=== PATIENT | female | born 1990 | race African-American/Black ===

== ENCOUNTER 2017-05-16 03:29 | Emergency (ER) | payer OTHER ==
[~2017-05-16] VITALS: Ht 162.6 cm; Wt 57.0 kg
[~2017-05-16 03:29] MED LIST: LORT5TAB PO; Z.0.NO CURRENT MEDS; ZOFR4TAB3 SL
[2017-05-16 03:38] VITALS: BP 135/88; PULSE 93; RESP 18; TEMP 98.3; O2SAT 98
[2017-05-16 04:04] LABS: BASOPHIL # 0.1 TH/MM3 (0-0.2); BASOPHIL % 1.3 % (0.0-2.0); EOSINOPHIL % 0.4 % (0.0-4.0); HEMATOCRIT 37.1 % (35.0-46.0); HEMO FLAGS DIFF FINAL; LYMPH % 27.4 % (9.0-44.0); LYMPHOCYTE # 1.3 TH/MM3 (1.0-4.8); MEAN CELL VOLUME 87.2 FL (80.0-100.0); MEAN CORPUSCULAR HEMOGLOBIN 28.2 PG (27.0-34.0); MEAN CORPUSCULAR HGB CONC 32.3 % (32.0-36.0); MONO % 9.4 % (0.0-8.0); NEUT % 61.5 % (16.0-70.0); PLATELET COUNT 193 TH/MM3 (150-450); RED BLOOD COUNT 4.26 MIL/MM3 (4.00-5.30); RED CELL DISTRIBUTION WIDTH 13.7 % (11.6-17.2); WHITE BLOOD COUNT 4.9 TH/MM3 (4.0-11.0)
[2017-05-16 04:11] LABS: BACTERIA, URINE RARE /hpf; BLOOD, URINE LARGE (NEG); COMMENT (UR) CULT NOT INDICATED; CULTURE IF INDICATED CULT NOT INDICATED; GLUCOSE,URINE NEG (NEG); HYALINE CAST, URINE 2 /lpf (RARE); KETONE, URINE 40 mg/dL (NEG); MUCUS URINE MANY /lpf (OCC); NITRITE,URINE NEG (NEG); PH, URINE 5.5 (5.0-8.5); SQUAMOUS EPITHELIAL CELL URINE 1 /hpf (0-5); URINE COLOR YELLOW (YELLW/STRAW)
--- NOTE | 2017-05-16 04:20 | PD ---
HPI Chief Complaint: Psychiatric Symptoms Time Seen by Provider: 03:46 Travel History International Travel<30 days: No Contact w/Intl Traveler<30days: No Traveled to known affect area: No History of Present Illness HPI Patient was brought into the emergency Department under a Valenzuela act due to [place] [address]. Patient is tearful and states that her friends lied to her about another friend's . She states she's been out of them. She would just rather . She reports a previous suicide attempt by overdose several years ago. She reports a past medical history significant for anxiety. She is currently under a Mary Garcia due to lack of identification. Valenzuela act paper work has Cynthia Olmedo on it however she would not state her given name. She denies any other complaints at this time. She denies any hallucinations or physical complaints. [facility] Past Medical History Anxiety: Yes Depression: Yes Diabetes: No Patient Takes Glucophage: No Diminished Hearing: No Immunizations Current: Yes Tetanus Vaccination: > 5 Years Influenza Vaccination: No ?: Unknown LMP: 05/16/17 : 0 Past Surgical History Surgical History: No Previous Surgery Social History Alcohol Use: No Tobacco Use: No Substance Use: Yes (CANNABIS) Allergies-Medications (Allergen,Severity, Reaction): Coded Allergies: No Known Allergies (Unverified , 05/16/17) Reported Meds & Prescriptions Reported Meds & Active Scripts Active No Active Prescriptions or Reported Medications Review of Systems Except as stated in HPI: all other systems reviewed are Neg Psychiatric: Positive: Anxiety, Depression, Suicidal Ideations Physical Exam Narrative GENERAL: Well-developed, well-nourished, well kept female. Appears anxious and tearful, in no acute distress. SKIN: Warm and dry. HEAD: Atraumatic. Normocephalic. EYES: Pupils equal and round. No scleral icterus. No injection or drainage. ENT: No nasal bleeding or discharge. Mucous membranes pink and moist. NECK: Trachea midline. No JVD. CARDIOVASCULAR: Regular rate and rhythm. RESPIRATORY: No accessory muscle use. Clear to auscultation. Breath sounds equal bilaterally. GASTROINTESTINAL: Abdomen soft, non-tender, nondistended. Hepatic and splenic margins not palpable. MUSCULOSKELETAL: Extremities without clubbing, cyanosis, or edema. No obvious deformities. NEUROLOGICAL: Awake and alert. No obvious cranial nerve deficits. Motor grossly within normal limits. Five out of 5 muscle strength in the arms and legs. Normal speech. PSYCHIATRIC: Depressed mood and affect; insight and judgment normal. Data Data Last Documented VS Vital Signs Date Time Temp Pulse Resp B/P (MAP) Pulse Ox O2 Delivery O2 Flow Rate FiO2 05/16/17 03:38 98.3 93 18 135/88 (104) 98 Orders Orders Complete Blood Count With Diff (05/16/17 03:46) Comprehensive Metabolic Panel (05/16/17 03:46) Urinalysis - C+S If Indicated (05/16/17 03:46) Psych Screen (05/16/17 03:46) Drug Screen, Random Urine (05/16/17 03:46) Alcohol (Ethanol) (05/16/17 03:46) Lorazepam Inj (Ativan Inj) (05/16/17 04:45) Labs Laboratory Tests Test 05/16/17 03:59 White Blood Count 4.9 TH/MM3 Red Blood Count 4.26 MIL/MM3 Hemoglobin 12.0 GM/DL Hematocrit 37.1 % Mean Corpuscular Volume 87.2 FL Mean Corpuscular Hemoglobin 28.2 PG Mean Corpuscular Hemoglobin Concent 32.3 % Red Cell Distribution Width 13.7 % Platelet Count 193 TH/MM3 Mean Platelet Volume 8.9 FL Neutrophils (%) (Auto) 61.5 % Lymphocytes (%) (Auto) 27.4 % Monocytes (%) (Auto) 9.4 % Eosinophils (%) (Auto) 0.4 % Basophils (%) (Auto) 1.3 % Neutrophils # (Auto) 3.0 TH/MM3 Lymphocytes # (Auto) 1.3 TH/MM3 Monocytes # (Auto) 0.5 TH/MM3 Eosinophils # (Auto) 0.0 TH/MM3 Basophils # (Auto) 0.1 TH/MM3 CBC Comment DIFF FINAL Differential Comment Urine Color YELLOW Urine Turbidity HAZY Urine pH 5.5 Urine Specific [place] 1.034 Urine Protein 30 mg/dL Urine Glucose (UA) NEG mg/dL Urine Ketones 40 mg/dL Urine Occult Blood LARGE Urine Nitrite NEG Urine Bilirubin NEG Urine Urobilinogen LESS THAN 2.0 MG/DL Urine Leukocyte Esterase TRACE Urine RBC 121 /hpf Urine WBC 4 /hpf Urine Squamous Epithelial Cells 1 /hpf Urine Amorphous Sediment RARE Urine Bacteria RARE /hpf Urine Hyaline Casts 2 /lpf Urine Mucus MANY /lpf Microscopic Urinalysis Comment CULT NOT INDICATED Blood Urea Nitrogen 17 MG/DL Creatinine 0.87 MG/DL Random Glucose 78 MG/DL Total Protein 7.9 GM/DL Albumin 4.2 GM/DL Calcium Level 9.1 MG/DL Alkaline Phosphatase 53 U/L Aspartate Amino Transf (AST/SGOT) 15 U/L Alanine Aminotransferase (ALT/SGPT) 19 U/L Total Bilirubin 0.7 MG/DL Sodium Level 140 MEQ/L Potassium Level 3.5 MEQ/L Chloride Level 105 MEQ/L Carbon Dioxide Level 25.8 MEQ/L Anion Gap 9 MEQ/L Estimat Glomerular Filtration Rate 56 ML/MIN Urine Opiates Screen NEG Urine Barbiturates Screen NEG Urine Amphetamines Screen NEG Urine Benzodiazepines Screen NEG Urine Cocaine Screen NEG Urine Cannabinoids Screen POS Ethyl Alcohol Level LESS THAN 3 MG/DL MDM Medical Decision Making Medical Screen Exam Complete: Yes Emergency Medical Condition: Yes Interpretation(s) Laboratory Tests Test 05/16/17 03:59 White Blood Count 4.9 TH/MM3 Red Blood Count 4.26 MIL/MM3 Hemoglobin 12.0 GM/DL Hematocrit 37.1 % Mean Corpuscular Volume 87.2 FL Mean Corpuscular Hemoglobin 28.2 PG Mean Corpuscular Hemoglobin Concent 32.3 % Red Cell Distribution Width 13.7 % Platelet Count 193 TH/MM3 Mean Platelet Volume 8.9 FL Neutrophils (%) (Auto) 61.5 % Lymphocytes (%) (Auto) 27.4 % Monocytes (%) (Auto) 9.4 % Eosinophils (%) (Auto) 0.4 % Basophils (%) (Auto) 1.3 % Neutrophils # (Auto) 3.0 TH/MM3 Lymphocytes # (Auto) 1.3 TH/MM3 Monocytes # (Auto) 0.5 TH/MM3 Eosinophils # (Auto) 0.0 TH/MM3 Basophils # (Auto) 0.1 TH/MM3 CBC Comment DIFF FINAL Differential Comment Urine Color YELLOW Urine Turbidity HAZY Urine pH 5.5 Urine Specific [place] 1.034 Urine Protein 30 mg/dL Urine Glucose (UA) NEG mg/dL Urine Ketones 40 mg/dL Urine Occult Blood LARGE Urine Nitrite NEG Urine Bilirubin NEG Urine Urobilinogen LESS THAN 2.0 MG/DL Urine Leukocyte Esterase TRACE Urine RBC 121 /hpf Urine WBC 4 /hpf Urine Squamous Epithelial Cells 1 /hpf Urine Amorphous Sediment RARE Urine Bacteria RARE /hpf Urine Hyaline Casts 2 /lpf Urine Mucus MANY /lpf Microscopic Urinalysis Comment CULT NOT INDICATED Blood Urea Nitrogen 17 MG/DL Creatinine 0.87 MG/DL Random Glucose 78 MG/DL Total Protein 7.9 GM/DL Albumin 4.2 GM/DL Calcium Level 9.1 MG/DL Alkaline Phosphatase 53 U/L Aspartate Amino Transf (AST/SGOT) 15 U/L Alanine Aminotransferase (ALT/SGPT) 19 U/L Total Bilirubin 0.7 MG/DL Sodium Level 140 MEQ/L Potassium Level 3.5 MEQ/L Chloride Level 105 MEQ/L Carbon Dioxide Level 25.8 MEQ/L Anion Gap 9 MEQ/L Estimat Glomerular Filtration Rate 56 ML/MIN Urine Opiates Screen NEG Urine Barbiturates Screen NEG Urine Amphetamines Screen NEG Urine Benzodiazepines Screen NEG Urine Cocaine Screen NEG Urine Cannabinoids Screen POS Ethyl Alcohol Level LESS THAN 3 MG/DL Vital Signs Date Time Temp Pulse Resp B/P (MAP) Pulse Ox O2 Delivery O2 Flow Rate FiO2 05/16/17 03:38 98.3 93 18 135/88 (104) 98 Differential Diagnosis Mood disorder versus psychosis versus substance abuse versus suicidal ideation versus other Narrative Course Patient was brought in under Valenzuela act due to suicidal ideations, she was witnessed running into traffic [place] [address]. Patient is cooperative at this time, her vital signs are stable. She is not forthcoming with information regarding her identity or relationship situations. She has been talking about her family lying to her regarding the of a friend. Mental health screening discussed with the patient. Psychiatric screen ordered. 0450 patient started to become extremely agitated and eloped from her room she then began to rattle off names of people from her sorority, from her childhood, police officers, people from [employer] that she went to school with;these people allegedly had wronged her as a child and had her certificate her belongings and she wanted them called. Patient would not calm down and she was visibly upset and tearful, very anxious appearing. She was given 0.5 mg Ativan IM 1. She attempted to elope from her room second time and then was given Haldol and Benadryl. Patient appears to be suffering from some type of psychotic break. She reports that her name is Cynthia Olmedo or Radha Moore. She states that she graduated from [employer] 4 years ago. Labs reviewed, no acute findings identified. Urine drug screen is positive for marijuana which patient admitted to. Patient is medically cleared for psychiatric evaluation. Diagnosis Primary Impression: Medical clearance for psychiatric admission Additional Impression: Mood disorder Scripts No Active Prescriptions or Reported Meds Condition: Rosalina Mcknight May 16, 2017 04:20
[2017-05-16 04:25] LABS: ALT (GPT) 19 U/L (10-53); ANION GAP 9 MEQ/L (5-15); AST (GOT) 15 U/L (15-37); BICARBONATE 25.8 MEQ/L (21.0-32.0); BLOOD UREA NITROGEN 17 MG/DL (7-18); CHLORIDE 105 MEQ/L (98-107); GLOMERULAR FILTRATION RATE 56 ML/MIN (>89); POTASSIUM 3.5 MEQ/L (3.5-5.1); SODIUM (NA) 140 MEQ/L (136-145)
[2017-05-16 04:26] LABS: ALCOHOL LESS THAN 3 MG/DL (0-5)
[2017-05-16 04:28] LABS: ALKALINE PHOSPHATASE 53 U/L (45-117); TOTAL BILIRUBIN ADULT 0.7 MG/DL (0.2-1.0)
[2017-05-16] MEDS ORDERED: LORazepam 2 MG/ML VIAL IM ONE (04:45)
[2017-05-16] MEDS ORDERED: diphenhydrAMINE HCL 50 MG/ML VIAL IM ONE (05:15)
[2017-05-16] MEDS ORDERED: HALOPERIDOL LACTATE 5 MG/ML AMP IM ONE (05:15)
[2017-05-16 07:00] VITALS: BP 118/64; PULSE 87; RESP 16; O2SAT 99
[2017-05-16 11:54] VITALS: BP 117/70; PULSE 60; RESP 16; O2SAT 100
[2017-05-16 16:54] VITALS: BP 117/70; PULSE 60; RESP 16; O2SAT 100
[2017-05-16 18:40] VITALS: BP 114/71; PULSE 87; RESP 18; O2SAT 100
--- NOTE | 2017-05-16 19:27 | PD ---
History of Present Illness Chief Complaint: Psychiatric Symptoms Time Seen by Provider: 18:00 Travel History International Travel<30 Days: No Contact w/Intl Traveler<30days: No Known affected area: No Legal Status Legal Status: Valenzuela Act Valenzuela Act Signed By: Mei Yanes Valenzuela Act Comment: BA signed by: GRICELDA KUMAR Badge#[id number],Case#[id number], 05/16/17,3:20am History of Present Illness: History of Present Illness HPI Patient is a 31-year-old female who presents to the ED as a Mray Garcia since she hasn't now identification but states her name is Cynthia Moore. Patient presents to the ED under a Valenzuela act after she allegedly was found attempting to jump in traffic [place]. The patient did not in fact make any attempt at harming herself. Electronic medical record is review with no previous contact with [facility] psychiatry Department toxicology is pending at the time of this report. Patient was monitored in J pod over a period of over 24 hours she presented no suicidality and no behavioral concerns.n. Patient is alert and oriented female who is engaging and cooperative. She states I am not trying to hurt myself or hurt anyone. I was acting out because I wanted to know which show up. She states that on the night that she was placed under the Valenzuela act she was walking in order to get" her thoughts in order". Patient does not present any psychotic symptomatology, there is no radha, and no objective clinical symptoms of depression. She denies substance use. She denies suicidal or homicidal ideation. She states she wants counseling. She also states that she wants to get a job, looking to beginning her graduate studies, and going on with her life. PFSH Past Medical History Anxiety: Yes Depression: Yes Diabetes: No Patient Takes Glucophage: No Diminished Hearing: No Immunizations Current: Yes Tetanus Vaccination: > 5 Years Influenza Vaccination: No ?: Unknown LMP: 05/16/17 : 0 Past Surgical History Surgical History: No Previous Surgery Psychiatric History Psychiatric History Hx Psychiatric Treatment: Says she has a psych admission approx 1 1/2 yrs ago in [facility]. Reports she took medication for approximately 1 week but then discontinued because she did not like how it made her feel History of Inpatient Treatment: Yes Guns or firearms in home: No Social History Born and raised in [facility] reports her mother murdered her father when she was young and she was raised by her grandparents. Completed 4 years of college at [employer] where she studied art.She then moved to [facility] for 2-1/2 years to work. She recently came back to [facility] to help in the care of her grandmother. She finds herself staying with friends now in different placement in different friend's homes. Unemployed at present time. Hx Alcohol Use: No Hx Tobacco Use: No Hx Substance Use: Yes Substance Use Type: Marijuana Other Substances Used: Pt admits to smoking marijuana Hx of Substance Use Treatment: No Family Psychiatric History Negative Allergies-Medications (Allergen,Severity, Reaction): Coded Allergies: No Known Allergies (Unverified , 05/16/17) Reported Meds & Prescriptions Reported Meds & Active Scripts Active No Active Prescriptions or Reported Medications Review of Systems Except as stated in HPI: all other systems reviewed are Neg Mental Status Examination Appearance: Appropriate Consciousness: Alert Orientation: x4 Motor Activity: Normal gait Speech: Unremarkable Language: Adequate Fund of Knowledge: Adequate Attention and Concentration: Adequate Memory: Unremarkable Mood: Appropriate Affect: Appropriate Thought Process & Associations: Intact, Logical, Goal directed Thought Content: Appropriate Hallucination Type: None Delusion Type: None Suicidal Ideation: No Suicidal Plan: No Suicidal Intention: No Homicidal Ideation: No Homicidal Plan: No Homicidal Intention: No Insight: Adequate Judgment: Adequate [facility] Medical Decision Making Medical Record Reviewed: Yes Assessment/Plan Patient is a 31-year-old female who presents to the ED as a Mary Garcia since she hasn't now identification but states her name is Cynthia Moore. Patient presents to the ED under a Valenzuela act after she allegedly was found attempting to jump in traffic while on [email or web address] [place]. The patient did not in fact make any attempt at harming herself. Electronic medical record is review with no previous contact with [facility] psychiatry Department toxicology is pending at the time of this report. Patient was monitored in J pod over a period of over 24 hours she presented no suicidality and no behavioral concerns. Patient is not psychotic, not suicdal or homicidal. She verbalizes that she is trying to make some changes professionally and talks about going to [employer] to pursue a masters in [employer]. She also talks about getting a job in order to be able to get an apartment or a hotel room. She is cognitively intact. Does not present imminent risk to self or others. To be discharged in am once she can formulate a safe discharge plan. Orders Orders Complete Blood Count With Diff (05/16/17 03:46) Comprehensive Metabolic Panel (05/16/17 03:46) Urinalysis - C+S If Indicated (05/16/17 03:46) Psych Screen (05/16/17 03:46) Drug Screen, Random Urine (05/16/17 03:46) Alcohol (Ethanol) (05/16/17 03:46) Lorazepam Inj (Ativan Inj) (05/16/17 04:45) Haloperidol Inj (Haldol Inj) (05/16/17 05:15) Diphenhydramine Inj (Benadryl Inj) (05/16/17 05:15) Diet Regular Basic (05/16/17 Breakfast) Diet Regular Basic (05/16/17 Lunch) Diet Regular Basic (05/16/17 Dinner) Results Vital Signs Date Time Temp Pulse Resp B/P (MAP) Pulse Ox O2 Delivery O2 Flow Rate FiO2 05/16/17 18:40 87 18 114/71 (85) 100 Room Air 05/16/17 16:54 60 16 117/70 (86) 100 Room Air 05/16/17 11:54 60 16 117/70 (86) 100 Room Air 05/16/17 07:00 87 16 118/64 (82) 99 Room Air 05/16/17 03:38 98.3 93 18 135/88 (104) 98 Laboratory Tests Test 05/16/17 03:59 White Blood Count 4.9 Red Blood Count 4.26 Hemoglobin 12.0 Hematocrit 37.1 Mean Corpuscular Volume 87.2 Mean Corpuscular Hemoglobin 28.2 Mean Corpuscular Hemoglobin Concent 32.3 Red Cell Distribution Width 13.7 Platelet Count 193 Mean Platelet Volume 8.9 Neutrophils (%) (Auto) 61.5 Lymphocytes (%) (Auto) 27.4 Monocytes (%) (Auto) 9.4 Eosinophils (%) (Auto) 0.4 Basophils (%) (Auto) 1.3 Neutrophils # (Auto) 3.0 Lymphocytes # (Auto) 1.3 Monocytes # (Auto) 0.5 Eosinophils # (Auto) 0.0 Basophils # (Auto) 0.1 CBC Comment DIFF FINAL Differential Comment Urine Color YELLOW Urine Turbidity HAZY Urine pH 5.5 Urine Specific [place] 1.034 Urine Protein 30 Urine Glucose (UA) NEG Urine Ketones 40 Urine Occult Blood LARGE Urine Nitrite NEG Urine Bilirubin NEG Urine Urobilinogen LESS THAN 2.0 Urine Leukocyte Esterase TRACE Urine RBC 121 Urine WBC 4 Urine Squamous Epithelial Cells 1 Urine Amorphous Sediment RARE Urine Bacteria RARE Urine Hyaline Casts 2 Urine Mucus MANY Microscopic Urinalysis Comment CULT NOT INDICATED Blood Urea Nitrogen 17 Creatinine 0.87 Random Glucose 78 Total Protein 7.9 Albumin 4.2 Calcium Level 9.1 Alkaline Phosphatase 53 Aspartate Amino Transf (AST/SGOT) 15 Alanine Aminotransferase (ALT/SGPT) 19 Total Bilirubin 0.7 Sodium Level 140 Potassium Level 3.5 Chloride Level 105 Carbon Dioxide Level 25.8 Anion Gap 9 Estimat Glomerular Filtration Rate 56 Urine Opiates Screen NEG Urine Barbiturates Screen NEG Urine Amphetamines Screen NEG Urine Benzodiazepines Screen NEG Urine Cocaine Screen NEG Urine Cannabinoids Screen POS Ethyl Alcohol Level LESS THAN 3 Diagnosis Primary Impression: Adjustment disorder Psychiatrically Cleared: Yes Prescriptions No Active Prescriptions or Reported Meds Disposition: 01 DISCHARGE HOME Condition: Stable Problem Qualifiers Primary Impression: Adjustment disorder Qualified Codes: F43.20 - Adjustment disorder, unspecified Varsha MunguiaP May 16, 2017 19:26
[2017-05-17 06:09] VITALS: BP 125/72; PULSE 54; RESP 19; O2SAT 99
--- NOTE | 2017-05-17 10:21 | PD ---
Physical Exam Time Seen by Provider: 10:19 SUDHA Page, has evaluated the patient, lifted Valenzuela act and cleared the patient for discharge. Data Data Last Documented VS Vital Signs Date Time Temp Pulse Resp B/P (MAP) Pulse Ox O2 Delivery O2 Flow Rate FiO2 05/17/17 06:09 54 19 125/72 (89) 99 05/16/17 18:40 Room Air 05/16/17 03:38 98.3 Orders Orders Complete Blood Count With Diff (05/16/17 03:46) Comprehensive Metabolic Panel (05/16/17 03:46) Urinalysis - C+S If Indicated (05/16/17 03:46) Psych Screen (05/16/17 03:46) Drug Screen, Random Urine (05/16/17 03:46) Alcohol (Ethanol) (05/16/17 03:46) Lorazepam Inj (Ativan Inj) (05/16/17 04:45) Haloperidol Inj (Haldol Inj) (05/16/17 05:15) Diphenhydramine Inj (Benadryl Inj) (05/16/17 05:15) Diet Regular Basic (05/16/17 Breakfast) Diet Regular Basic (05/16/17 Lunch) Diet Regular Basic (05/16/17 Dinner) Diet Regular Basic (05/17/17 Breakfast) Diet Regular Basic (05/17/17 Lunch) Labs Laboratory Tests Test 05/16/17 03:59 White Blood Count 4.9 TH/MM3 Red Blood Count 4.26 MIL/MM3 Hemoglobin 12.0 GM/DL Hematocrit 37.1 % Mean Corpuscular Volume 87.2 FL Mean Corpuscular Hemoglobin 28.2 PG Mean Corpuscular Hemoglobin Concent 32.3 % Red Cell Distribution Width 13.7 % Platelet Count 193 TH/MM3 Mean Platelet Volume 8.9 FL Neutrophils (%) (Auto) 61.5 % Lymphocytes (%) (Auto) 27.4 % Monocytes (%) (Auto) 9.4 % Eosinophils (%) (Auto) 0.4 % Basophils (%) (Auto) 1.3 % Neutrophils # (Auto) 3.0 TH/MM3 Lymphocytes # (Auto) 1.3 TH/MM3 Monocytes # (Auto) 0.5 TH/MM3 Eosinophils # (Auto) 0.0 TH/MM3 Basophils # (Auto) 0.1 TH/MM3 CBC Comment DIFF FINAL Differential Comment Urine Color YELLOW Urine Turbidity HAZY Urine pH 5.5 Urine Specific [place] 1.034 Urine Protein 30 mg/dL Urine Glucose (UA) NEG mg/dL Urine Ketones 40 mg/dL Urine Occult Blood LARGE Urine Nitrite NEG Urine Bilirubin NEG Urine Urobilinogen LESS THAN 2.0 MG/DL Urine Leukocyte Esterase TRACE Urine RBC 121 /hpf Urine WBC 4 /hpf Urine Squamous Epithelial Cells 1 /hpf Urine Amorphous Sediment RARE Urine Bacteria RARE /hpf Urine Hyaline Casts 2 /lpf Urine Mucus MANY /lpf Microscopic Urinalysis Comment CULT NOT INDICATED Blood Urea Nitrogen 17 MG/DL Creatinine 0.87 MG/DL Random Glucose 78 MG/DL Total Protein 7.9 GM/DL Albumin 4.2 GM/DL Calcium Level 9.1 MG/DL Alkaline Phosphatase 53 U/L Aspartate Amino Transf (AST/SGOT) 15 U/L Alanine Aminotransferase (ALT/SGPT) 19 U/L Total Bilirubin 0.7 MG/DL Sodium Level 140 MEQ/L Potassium Level 3.5 MEQ/L Chloride Level 105 MEQ/L Carbon Dioxide Level 25.8 MEQ/L Anion Gap 9 MEQ/L Estimat Glomerular Filtration Rate 56 ML/MIN Urine Opiates Screen NEG Urine Barbiturates Screen NEG Urine Amphetamines Screen NEG Urine Benzodiazepines Screen NEG Urine Cocaine Screen NEG Urine Cannabinoids Screen POS Ethyl Alcohol Level LESS THAN 3 MG/DL MDM Supervised Visit with ALMITA: No Narrative Course SUDHA Maddox has evaluated the patient, lifted the Valenzuela act and cleared the patient for discharge. Patient contracts safety. Denies suicidal or homicidal ideations. Patient will be provided community resource packet to SIMONE for follow-up. Has friends and family for support. Patient is medically cleared for discharge. Diagnosis Primary Impression: Medical clearance for psychiatric admission Additional Impressions: Adjustment disorder Qualified Codes: F43.20 - Adjustment disorder, unspecified Mood disorder Referrals: GISSELLE (Out patient) [facility] Primary Care Physician Psychiatrist [facility] Patient Instructions: General Instructions, Mood Disorders (ED) Additional Instruction: Contract safety to your self and others Follow-up with psychiatry Follow-up with primary care provider Follow-up with Melo Ivory Return to the emergency department immediately with worsening of symptoms Med/Other Pt SpecificInfo: No Meds Exist/No RX given Scripts No Active Prescriptions or Reported Meds Disposition: DISCHARGE HOME Condition: Stable Judi Dupont May 17, 2017 10:21
[2017-05-17 10:45] VITALS: BP 122/75; PULSE 78; RESP 18; O2SAT 99
== END 2017-05-17 11:15 | disposition home or self-care (01) ==
LOC: EDBD → MERGE 03:29 → NEPD 03:29 → NEPJ 05-17 11:15
DX: F43.20 Adjustment disorder, unspecified (principal); F39 Unspecified mood [affective] disorder
CPT/HCPCS: 80053; 80307; 81001; 85025; 96372; 99284; J1200; J1630; J2060

== ENCOUNTER 2018-01-19 12:30 | Emergency (ER) | payer SELFPAY ==
[~2018-01-19] VITALS: Ht 167.6 cm; Wt 70.0 kg
[2018-01-19 13:06] VITALS: BP 106/76; PULSE 69; RESP 17; TEMP 98; O2SAT 98
[2018-01-19] MEDS ORDERED: KETOROLAC TROMETHAMINE 30 MG/ML (IVP) VIAL IV PUSH ONE (15:00)
[2018-01-19 15:01] VITALS: BP 103/58; PULSE 60; RESP 17; O2SAT 100
--- NOTE | 2018-01-19 15:31 | PD ---
HPI Chief Complaint: Headache Time Seen by Provider: 14:28 Travel History International Travel<30 days: No Contact w/Intl Traveler<30days: No Traveled to known affect area: No History of Present Illness HPI This is a 27-year-old female who presents to the emergency department with 1 month of headaches that are worse on the right side of her head, every day, moderate severity, feeling like something is dripping from her head into her sinus associated with some nausea. She denies any photophobia or phonophobia. She is not prone to headaches. She was hoping she can get some sort of imaging study to make sure this was not anything serious. She is getting insurance on February 05 does not currently have a primary care physician because she is working [facility] Past Medical History Bipolar Disorder: Yes Anxiety: Yes Depression: Yes Diabetes: No Diminished Hearing: No Immunizations Current: Yes Tetanus Vaccination: Unknown Influenza Vaccination: No ?: Not LMP: 12/15/17 : 0 Past Surgical History Surgical History: No Previous Surgery Social History Alcohol Use: No Tobacco Use: No Substance Use: No Allergies-Medications (Allergen,Severity, Reaction): Coded Allergies: No Known Allergies (Verified Adverse Reaction, Unknown, 01/19/18) Reported Meds & Prescriptions Reported Meds & Active Scripts Active No Active Prescriptions or Reported Medications Physical Exam Narrative GENERAL:Well appearing, no acute distress SKIN: Focused skin assessment warm and dry. HEAD: Atraumatic. Normocephalic. EYES: Pupils equal and round. No injection or drainage. ENT: Moist mucous membranes NECK: Trachea midline. CARDIOVASCULAR: Regular rate and rhythm. No murmur appreciated. RESPIRATORY: Clear to auscultation. Breath sounds equal bilaterally. GASTROINTESTINAL: Abdomen soft, non-tender, nondistended. MUSCULOSKELETAL: No obvious deformities. NEUROLOGICAL: Awake and alert. No obvious cranial nerve deficits. No dysarthria or aphasia. No upper or lower extremity drift. No upper extremity ataxia. Visual wang intact. PSYCHIATRIC: Appropriate mood and affect; insight and judgment normal. Data Data Last Documented VS Vital Signs Date Time Temp Pulse Resp B/P (MAP) Pulse Ox O2 Delivery O2 Flow Rate FiO2 01/19/18 15:01 60 17 103/58 (73) 100 Room Air 01/19/18 13:06 98.0 Orders Orders Complete Blood Count With Diff (01/19/18 14:53) Comprehensive Metabolic Panel (01/19/18 14:53) ^ Insert Iv (01/19/18 14:53) Ketorolac Inj (Toradol Inj) (01/19/18 15:00) Labs Laboratory Tests Test 01/19/18 15:20 White Blood Count 4.8 TH/MM3 Red Blood Count 4.45 MIL/MM3 Hemoglobin 12.4 GM/DL Hematocrit 38.4 % Mean Corpuscular Volume 86.2 FL Mean Corpuscular Hemoglobin 27.9 PG Mean Corpuscular Hemoglobin Concent 32.4 % Red Cell Distribution Width 14.1 % Platelet Count 149 TH/MM3 Mean Platelet Volume 9.2 FL Neutrophils (%) (Auto) 70.6 % Lymphocytes (%) (Auto) 23.3 % Monocytes (%) (Auto) 4.6 % Eosinophils (%) (Auto) 0.6 % Basophils (%) (Auto) 0.9 % Neutrophils # (Auto) 3.4 TH/MM3 Lymphocytes # (Auto) 1.1 TH/MM3 Monocytes # (Auto) 0.2 TH/MM3 Eosinophils # (Auto) 0.0 TH/MM3 Basophils # (Auto) 0.0 TH/MM3 CBC Comment DIFF FINAL Differential Comment Blood Urea Nitrogen 12 MG/DL Creatinine 0.97 MG/DL Random Glucose 119 MG/DL Total Protein 7.3 GM/DL Albumin 3.9 GM/DL Calcium Level 9.0 MG/DL Alkaline Phosphatase 57 U/L Aspartate Amino Transf (AST/SGOT) 15 U/L Alanine Aminotransferase (ALT/SGPT) 15 U/L Total Bilirubin 0.8 MG/DL Sodium Level 140 MEQ/L Potassium Level 3.7 MEQ/L Chloride Level 103 MEQ/L Carbon Dioxide Level 26.6 MEQ/L Anion Gap 10 MEQ/L Estimat Glomerular Filtration Rate 84 ML/MIN [facility] Medical Decision Making Medical Screen Exam Complete: Yes Emergency Medical Condition: Yes Interpretation(s) Vital signs are reassuring Labs are reassuring Differential Diagnosis Migraine headache, tension headache, cluster headache, tumor, subarachnoid hemorrhage Narrative Course This is a 27-year-old female who reports that she has had one month of headaches. She has a normal neurologic exam. Labs are all reassuring and vital signs are reassuring. I do long conversation with the patient regarding imaging options. I do not think CT would be of much benefit as I do not suspect subarachnoid hemorrhage and the only concern could be a small brain tumor. She would be better off with an MRI and she understands and agrees with this. Patient was given a referral for [facility] for outpatient evaluation. Patient was discharged home. Diagnosis Primary Impression: Headache Qualified Codes: R51 - Headache Referrals: [facility] Patient Instructions: General Instructions Additional Instructions: If you develop severe worsening headache, persistent vomiting, numbness, weakness, difficulty walking or difficulty talking return to the emergency department immediately. Sometimes in the emergency department we did not identify the cause of headaches. If you continued to have headaches it is very important that you followup with your primary care physician as you may need further testing with an MRI. Med/Other Pt SpecificInfo: Prescription(s) given Scripts Naproxen (Naproxen) 375 Mg Tab 375 MG PO BID Y for PAIN SCALE 4 TO 10, #20 TAB 0 Refills Prov: Lo Smith MD 01/19/18 Disposition: 01 DISCHARGE HOME Condition: Stable Lo Smith MD Jan 19, 2018 15:31
[2018-01-19 16:04] LABS: AUTOMATED NEUTROPHIL # 3.4 TH/MM3 (1.8-7.7); BASOPHIL % 0.9 % (0.0-2.0); EOSINOPHIL % 0.6 % (0.0-4.0); HEMATOCRIT 38.4 % (35.0-46.0); HEMOGLOBIN 12.4 GM/DL (11.6-15.3); LYMPH % 23.3 % (9.0-44.0); LYMPHOCYTE # 1.1 TH/MM3 (1.0-4.8); MEAN CELL VOLUME 86.2 FL (80.0-100.0); MEAN CORPUSCULAR HEMOGLOBIN 27.9 PG (27.0-34.0); MEAN CORPUSCULAR HGB CONC 32.4 % (32.0-36.0); MEAN PLATELET VOLUME 9.2 FL (7.0-11.0); MONO % 4.6 % (0.0-8.0); MONOCYTE # 0.2 TH/MM3 (0-0.9); NEUT % 70.6 % (16.0-70.0); PLATELET COUNT 149 TH/MM3 (150-450); RED BLOOD COUNT 4.45 MIL/MM3 (4.00-5.30); RED CELL DISTRIBUTION WIDTH 14.1 % (11.6-17.2); WHITE BLOOD COUNT 4.8 TH/MM3 (4.0-11.0)
[2018-01-19 16:21] LABS: ALBUMIN 3.9 GM/DL (3.4-5.0); AST (GOT) 15 U/L (15-37); BICARBONATE 26.6 MEQ/L (21.0-32.0); BLOOD UREA NITROGEN 12 MG/DL (7-18); CHLORIDE 103 MEQ/L (98-107); CREATININE 0.97 MG/DL (0.50-1.00); GLOMERULAR FILTRATION RATE 84 ML/MIN (>89); GLUCOSE,RANDOM 119 MG/DL (74-106); SODIUM (NA) 140 MEQ/L (136-145)
[2018-01-19 16:24] LABS: ALKALINE PHOSPHATASE 57 U/L (45-117); ALT (GPT) 15 U/L (10-53); TOTAL BILIRUBIN ADULT 0.8 MG/DL (0.2-1.0); TOTAL PROTEIN 7.3 GM/DL (6.4-8.2)
[2018-01-19] MEDS ORDERED: NAPR-855 PO (16:34)
== END 2018-01-19 17:31 | disposition home or self-care (01) ==
LOC: NEPD 12:30
DX: R51 Headache (principal); R11.0 Nausea; F31.9 Bipolar disorder, unspecified; F41.9 Anxiety disorder, unspecified
CPT/HCPCS: 80053; 85025; 96374; 99283; J1885